=== PATIENT | female | born 1955 | race Caucasian/White ===

== ENCOUNTER 2016-08-24 14:11 | Emergency (ER) | payer BC ==
[2016-08-24 15:31] LABS: BASOPHILS 0.3 % (0-2); EOSINOPHILS 0.9 % (0-7); HEMOGLOBIN 13.8 g/dL (12-16); IMMATURE GRANULOCYTES 0.3 % (0-5); LYMPHOCYTES 19.8 % (15-50); MCH 32.1 pg (26.0-34.0); MCHC 33.7 g/dL (31.0-37.0); MCV 95.3 fL (80.0-100.0); MEAN PLATELET VOLUME 9.1 fL (7.4-10.4); NEUTROPHILS 71.7 % (40-80); PLATELET COUNT 379 10x3/uL (130-400); RDW 14.4 % (11.5-14.5); WBC 10.2 10x3/uL (4.8-10.8)
[2016-08-24 15:43] LABS: ALBUMIN 3.9 g/dL (3.4-5.0); ALKALINE PHOSPHATASE 95 U/L (46-116); ALT (SGPT) 18 U/L (10-68); BILIRUBIN - TOTAL 0.43 mg/dL (0.2-1.3); CALC OSMOLALITY 267 mosm/kg (275-300); CALCIUM 9.3 mg/dL (8.5-10.1); CARBON DIOXIDE 27.9 mmol/L (21.0-32.0); CHLORIDE - SERUM 98 mmol/L (98-107); CREATININE - SERUM 0.7 mg/dL (0.6-1.3); GLUCOSE 96 mg/dL (74-106); POTASSIUM - SERUM 4.6 mmol/L (3.5-5.1); PROTEIN - SERUM 7.8 g/dL (6.4-8.2); SODIUM 134 mmol/L (136-145); UREA NITROGEN 13 mg/dL (7-18); eGFR NON AFRICAN AMERICAN 90 mL/min (90-120)
[2016-08-24 15:52] LABS: T4 THYROXINE 8.5 ug/dL (4.7-13.3); THYROID STIMULATING HORMONE 1.85 uIU/mL (0.36-3.74)
[2016-08-24 15:55] LABS: C-REACTIVE PROTEIN 0.2 mg/dL (0.0-0.9)
== END 2016-08-24 16:21 | disposition home or self-care (01) ==
LOC: D.ER 14:11
PROVIDERS: Emergency Medicine
DX: H53.2 Diplopia (principal)

== ENCOUNTER → 2016-11-01 11:27 | Outpatient (CLI) | payer BC | END | disposition home or self-care (01) | LOC: D.CT 11:27 | DX: R05 Cough (principal); R63.4 Abnormal weight loss; F17.299 Nicotine dependence, other tobacco product, with unspecified nicotine-induced disorders ==

== ENCOUNTER → 2017-02-08 07:21 | Outpatient (CLI) | payer BC ==
[~2017-02-08 07:21] MED LIST: BETAPACE 80 MG80 MG PO; TAPAZOLE 5 MG TA5 MG PO
[2017-02-08 08:23] LABS: ALBUMIN 3.8 g/dL (3.4-5.0); BILIRUBIN - DIRECT 0.09 mg/dL (0.00-0.30); BILIRUBIN - INDIRECT 0.31 mg/dL (0.00-1.00); BILIRUBIN - TOTAL 0.4 mg/dL (0.2-1.3); PROTEIN - SERUM 8.1 g/dL (6.4-8.2)
[2017-02-10 10:53] VITALS: BMI 14.9
== END | disposition home or self-care (01) ==
LOC: D.MRI 02-01 08:00
PROVIDERS: Internal Medicine Gastroenterology
DX: R11.0 Nausea (principal); R63.4 Abnormal weight loss; R10.12 Left upper quadrant pain; R19.7 Diarrhea, unspecified; K76.9 Liver disease, unspecified

== ENCOUNTER 2017-02-09 08:42 | Inpatient (IN) | payer BC ==
[~2017-02-09] VITALS: Ht 165.1 cm; Wt 40.7 kg
[2017-02-09 09:28] LABS: BASOPHILS 0.1 % (0-2); EOSINOPHILS 0.7 % (0-7); HEMATOCRIT 38.6 % (36.0-48.0); HEMOGLOBIN 13.1 g/dL (12-16); IMMATURE GRANULOCYTES 0.2 % (0-5); MCH 30.2 pg (26.0-34.0); MCHC 33.9 g/dL (31.0-37.0); MCV 88.9 fL (80.0-100.0); MEAN PLATELET VOLUME 8.9 fL (7.4-10.4); MONOCYTES 6.9 % (2-11); NEUTROPHILS 74.1 % (40-80); PLATELET COUNT 345 10x3/uL (130-400); RBC 4.34 10x6/uL (4.00-5.40); RDW 13.6 % (11.5-14.5); WBC 9.8 10x3/uL (4.8-10.8)
[2017-02-09 09:41] LABS: ALKALINE PHOSPHATASE 88 U/L (46-116); ALT (SGPT) 26 U/L (10-68); BILIRUBIN - TOTAL 0.32 mg/dL (0.2-1.3); CALC OSMOLALITY 284 mosm/kg (275-300); CALCIUM 8.6 mg/dL (8.5-10.1); CARBON DIOXIDE 30.4 mmol/L (21.0-32.0); CHLORIDE - SERUM 106 mmol/L (98-107); CREATININE - SERUM 0.5 mg/dL (0.6-1.3); GLUCOSE 99 mg/dL (74-106); PROTEIN - SERUM 6.7 g/dL (6.4-8.2); SODIUM 143 mmol/L (136-145); UREA NITROGEN 13 mg/dL (7-18); eGFR NON AFRICAN AMERICAN > 90 mL/min (90-120)
[2017-02-09 09:53] LABS: MAGNESIUM - SERUM 1.8 mg/dL (1.8-2.4)
[2017-02-09 10:08] LABS: APTT 29.8 SECONDS (22.8-39.4)
[2017-02-09 10:09] LABS: D-DIMER-QUANTITATIVE 0.4 ug/mLFEU (0.20-0.54); INR 1.08 (0.85-1.17); PROTIME 13.6 SECONDS (11.6-15.0)
[2017-02-09 10:15] LABS: CKMB 0.9 U/L (0.0-3.6); CREATINE KINASE 34 UL (21-215); TROPONIN-I < 0.017 ng/mL (0.000-0.060)
[2017-02-09 11:05] LABS: T4 THYROXIN - FREE 1.91 ng/dL (0.76-1.46); T4 THYROXINE 13.9 ug/dL (4.7-13.3)
--- NOTE | 2017-02-09 11:58 | NUR ---
RATIONALE FOR SCD'S EXPLAINED. REFUSED SCD'S AT THIS TIME. IS AMBULATORY
--- NOTE | 2017-02-09 12:03 | NUR ---
CALLED PATIENT SPOUSE PER PATIENT REQUEST TO LET HIM KNOW SHE HAD BEEN ADMITTED AND ROOM #
[2017-02-09 12:22] VITALS: BMI 14.0
[2017-02-09 12:58] VITALS: BP 96/62
[2017-02-09 16:30] VITALS: BP 88/46
--- NOTE | 2017-02-09 20:13 | NUR ---
RESUMED CARE OF PT, LYING IN BED RESPIRATIONS EVEN AND UNLABORED ON 2LPM VIA NC. 79 SR ON TELEMETYR. RIGHT AC INFUSING CARDIZEM @ 5. PLAN OF CARE DISCUSSED. CALL LIGHT IN REACH. SEE NURSE ASSESSMENT. WILL CONTINUE TO MONITOR.
[2017-02-09 22:08] VITALS: BP 98/51
--- NOTE | 2017-02-10 01:52 | NUR ---
LYING IN BED WITH EYES CLOSED, CALL LIGHT IN REACH. WILL CONTINUE WITH PLAN OF CARE.
[2017-02-10 05:06] VITALS: BP 114/61
[2017-02-10 05:14] LABS: BASOPHILS 0.3 % (0-2); EOSINOPHILS 2.9 % (0-7); HEMOGLOBIN 11.5 g/dL (12-16); IMMATURE GRANULOCYTES 0.2 % (0-5); LYMPHOCYTES 42.4 % (15-50); MCH 29.7 pg (26.0-34.0); MCHC 32.9 g/dL (31.0-37.0); MCV 90.4 fL (80.0-100.0); MEAN PLATELET VOLUME 9.2 fL (7.4-10.4); MONOCYTES 10.8 % (2-11); NEUTROPHILS 43.4 % (40-80); PLATELET COUNT 332 10x3/uL (130-400); RBC 3.87 10x6/uL (4.00-5.40); RDW 13.9 % (11.5-14.5)
[2017-02-10 05:16] LABS: WBC 6.6 10x3/uL (4.8-10.8)
[2017-02-10 05:26] LABS: CALC OSMOLALITY 284 mosm/kg (275-300); CALCIUM 8.8 mg/dL (8.5-10.1); CARBON DIOXIDE 28.4 mmol/L (21.0-32.0); CHLORIDE - SERUM 106 mmol/L (98-107); CREATININE - SERUM 0.6 mg/dL (0.6-1.3); GLUCOSE 101 mg/dL (74-106); MAGNESIUM - SERUM 1.9 mg/dL (1.8-2.4); POTASSIUM - SERUM 3.9 mmol/L (3.5-5.1); SODIUM 143 mmol/L (136-145); UREA NITROGEN 13 mg/dL (7-18); eGFR NON AFRICAN AMERICAN > 90 mL/min (90-120)
--- NOTE | 2017-02-10 06:53 | NUR ---
NO CHANGES FROM PREVIOUS ASSESSMENT, CALL LIGHT IN REACH.
--- NOTE | 2017-02-10 07:30 | NUR ---
RECEIVED PT IN BED EYES CLOSED RESP UNLABORED NAD NOTED
[2017-02-10 10:10] VITALS: BP 102/67
[2017-02-10 10:53] VITALS: Ht 165.1 cm; Wt 40.7 kg
[2017-02-10 13:14] VITALS: BP 110/59
[2017-02-10] MEDS ORDERED: TAPAZOLE 5 MG TA5 MG PO (13:49)
[2017-02-10] MEDS ORDERED: BETAPACE 80 MG80 MG PO (13:49)
--- NOTE | 2017-02-10 15:50 | NUR ---
Patient Name: BEAN HEMPHILL Admission Status: ER Accout number: [id number] Admission Date: 02-09-2017 : 1955 Admission Diagnosis: Attending: ALYSE EVANS Current LOS: 1 Anticipated DC Date: 02-10-2017 Planned Disposition: Home Primary Insurance: [employer] Discharge Planning Comments: * Is the patient Alert and Oriented? Yes 0 * How many steps to enter\exit or inside your home? NONE 0 * PCP DR. ANDRES 0 * Pharmacy [facility] ON [address] 0 * Preadmission Environment Home with Family 0 * ADLs Independent 0 * Equipment None 0 * Other Equipment NO MEDICAL EQUIPMENT PROVIDER PREFERNECE 0 * List name and contact numbers for known caregivers / representatives who currently or will assist patient after discharge: QASIM HEMPHILL, SPOUSE, 0 * Community resources currently utilized None 0 * Please name any agencies selected above. NONE 0 * Additional services required to return to the preadmission environment? No 0 * Can the patient safely return to the preadmission environment? Yes 0 * Has this patient been hospitalized within the prior 30 days at any hospital? No 0 CM MET WITH PT AND SPOUSE IN ROOM TO DISCUSS DISCHARGE PLANNING AND NEEDS. PT REPORTS LIVING AT HOME INDEPENDENTLY WITH HER SPOUSE. PT HAS NO MEDICAL EQUIPMENT AND NO OUTSIDE SERVICES ASSISTING IN THE HOME. CM DISCUSSED AVAILABILITY OF HOME HEALTH, REHAB SERVICES AND MEDICAL EQUIPMENT. PT DENIES DISCHARGE NEEDS, REPORTS HER SPOUSE IS HERE TO PICK HER UP FOR DISCHARGE HOME TODAY. MI[employer]OS[employer]FT DEVELOPER NURSE NOTIFIED. Data Warehouse Analyst: Bryson Mcelroy
--- NOTE | 2017-02-10 16:20 | NUR ---
REVIEWED DISCHARGE INSTRUCTIONS WITH PT STATE UNDERSTANDING COPY GIVEN DCD SALINE LOCK TO RAC WITH IV CATHETER INTACT SITE FREE OF REDNESS OR EDEMA PT DISCHARGED HOME LEFT UNIT VIA W/C IN STABLE CONDITION WITH ALL PERSONAL BELONGINGS
--- NOTE | 2017-02-14 12:15 | EC ---
PATIENT:BEAN HEMPHILL DATE OF SERVICE: 02/09/17 SEX: F MEDICAL RECORD: [id number] DATE OF : [birth year] LOCATION:D.M2 D.211 AGE OF PATIENT: 61 ADMISSION DATE: 02/09/17 REFERRING PHYSICIAN: INTERPRETING PHYSICIAN: CHANTALE PATEL MD ECHOCARDIOGRAM REPORT ECHO CHARGES 4 ECHO COMPLETE CLINICAL DIAGNOSIS: AFIB ECHOCARDIOGRAPHIC MEASUREMENTS (adult normal given) AC root (d.<3.7cm) 2.4 cm LV Septum d (<1.2 cm> 0.9 cm Valve Excursion 1.0 cm LV Septum (systole) 1.2 cm Left Atria (s.<4.0cm> 2.8 cm LVPW d(<1.2cm) 1.2 cm RV (d.<2.3cm) 2.9 cm LVPW (sytole) 1.4 cm LV diastole(<5.6CM) 4.0 cm MV E-F(>70mm/sec) cm LV systole 2.7 cm LVOT Diameter 1.5 cm MV exc.(>10mm) 1.8 cm Est.ejection fraction (50-75%) % Pericardial Effusion N DOPPLER: LVIT cm/sec A 110 cm/sec E 131 cm/sec LA cm/sec RVSP 33 mmHg LVOT 92 cm/sec AOP1/2T m/s Asc. Ao 109 cm/sec RVOT cm/sec RA cm/sec PA 93 cm/sec AV Gradient Peak 4.74 mmHg AV Mean 2.25 mmHg AV Area 1.5 cm MV Gradient Peak 7.08 mmHg MV Mean 2.52 mmHg MV Area cm COMMENTS: Hot Plate Plywood Press Laborer: Fatuma BERNAL Settlement Clerk: Valentin Patel TAPE# PACS DATE OF SERVICE: 02/10/2017 Echocardiogram FINDINGS: 1. Left ventricular chamber size is within normal limits. Left ventricular systolic function is normal. Overall ejection fraction estimated at 60%. 2. Left atrium, right atrium, and right ventricular chamber sizes are within normal limits. 3. Valvular structures have normal structure and motion. ECHOCARDIOGRAM REPORT [id number] BEAN HEMPHILL 4. Doppler interrogation only reveals mild mitral regurgitation, mild tricuspid regurgitation, no other valvular insufficiency or stenosis. Pulmonary systolic pressure is normal estimated 33 mmHg. 5. No evidence of pericardial effusion or left ventricular thrombus. TRANSINT:[id number] Voice Confirmation ID: [id number] DOCUMENT ID: [id number] CHANTALE PATEL MD at 1215 CC: [id number] DICTATION DATE: 02/10/17 1422 [employer] EQUIPMENT: 02/10/17 1506 DIS IN 02/10/17 [place] [id number] [place] [id number]
--- NOTE | 2017-02-14 12:15 | CN ---
PATIENT NAME:BEAN CARTER MEDICAL RECORD: [id number] : [birth year] LOCATION:[facility] D.2114 ADMIT DATE: 02/09/17 ACCOUNT: [id number] CONSULTING PHYSICIAN: CHANTALE ZIMMERMAN MD REFERRING PHYSICIAN: ALYSE EVANS MD DATE OF CONSULTATION: 02/09/2017 DIAGNOSES: 1. Atrial fibrillation with rapid response. 2. Tachycardia. 3. Palpitations. HISTORY OF PRESENT ILLNESS: Mrs. Carter has had minimal symptomatology from the standpoint of palpitation. She was in Dr. Krueger's office Monday and was told that her heart rate and blood pressure were normal. She went for endoscopy today and was told that she had atrial fibrillation with rapid ventricular response. She has heart rates in the 130s. She is in atrial fibrillation. PHYSICAL EXAMINATION: GENERAL APPEARANCE: Well-nourished, well-developed, appears stated age. Level of distress, comfortable. PSYCHIATRIC: Mental status, alert, normal affect. Orientation, oriented to time, place and person. EYES: Lids and conjunctiva, noninjected. No discharge, no pallor. ENT: Lips, teeth, gums, normal dentition. Oropharynx, no cyanosis, no pallor. NECK: Carotid arteries, bilateral normal upstroke, no bruits, no thrills. JUGULAR VEINS: No jugular venous pressure or distention. CERVICAL LYMPH NODES: Nontender, nonenlarged. THYROID: Not enlarged. Nontender. No nodules. LUNGS: Respiratory effort, unlabored. CHEST: Normal curvature. No thoracic deformity. No chest wall tenderness. Percussion, resonant. Auscultation, clear. No wheezes, no rales, no rhonchi. CARDIOVASCULAR: Precordial exam, nondisplaced. No heaves or pericardial thrills. Rate and rhythm, regular. Heart sounds, normal S1, normal S2. No S3, no gallop, no rub. Systolic murmur, not heard. Diastolic murmur, not heard. EXTREMITIES: No cyanosis, no edema. Peripheral pulses, full and equal in all extremities, except as noted. No bruits appreciated. ABDOMEN: Soft, nondistended. Normal aorta. No bruit. Nontender. No masses. Liver, nontender, no hepatomegaly. Spleen, nontender, no splenomegaly. MUSCULOSKELETAL: No joint tenderness. No joint swelling. No erythema. NEUROLOGICAL: Normal gait, normal strength, normal tone. SKIN: Warm and dry. REVIEW OF SYSTEMS: The patient reports easy bruising but reports no swollen glands. The patient reports no fever, no night sweats, no significant weight gain, no significant weight loss. No significant exercise tolerance. The patient reports no dry eyes, no irritation, no vision change. Patient reports no difficulty hearing and no ear pain. Patient reports no frequent nose bleeds or nose and sinus problems. Patient reports on arm pain on exertion. No shortness of breath while lying down. No history of heart murmur. Patient reports no cough, no wheezing or coughing up blood. Patient reports no abdominal pain, no vomiting. Normal appetite. No diarrhea and not vomiting blood. No nausea and no constipation. Patient reports no incontinence. No difficulty urinating. No hematuria. No increased frequency. Patient reports no muscle aches. No weakness, no arthralgias, no back pain. No swelling of the CONSULT REPORT [id number] BEAN CARTER extremities. Patient reports no abnormal mole, no jaundice, no rashes. Reports no loss of consciousness. No weakness and no numbness. No seizures, dizziness, or headaches. The patient reports no depression, no sleep disturbance, feeling safe in a relationship and no alcohol abuse. Patient reports on fatigue. Reports no runny nose or sinus pressure. No itching, no hives, and no frequent sneezing. OVERALL IMPRESSION: At this time, we will start her on sotalol. Hopefully, this will convert her to sinus rhythm. We will get an echocardiogram as well. No other cardiac workup or treatment is necessary. If she does not convert by tomorrow morning, we will plan for DC cardioversion. TRANSINT:[id number] Voice Confirmation ID: [id number] DOCUMENT ID: [id number] CHANTALE ZIMMERMAN MD at 1215 CC: [id number] DICTATION DATE: 02/09/17 1319 AUTOMOTIVE ELECTRICIAN: 02/09/17 1333 DIS IN 02/10/17 [place] [id number] [place] [id number]
== END 2017-02-10 16:20 | disposition home or self-care (01) | DRG 310 ==
LOC: D.ER 08:42 → D.M2 10:48
PROVIDERS: Family Medicine; ADMIT Family Medicine
DX: I48.91 Unspecified atrial fibrillation (principal); E05.90 Thyrotoxicosis, unspecified without thyrotoxic crisis or storm; Z72.0 Tobacco use

== ENCOUNTER 2018-02-12 08:00 | Outpatient (CLI) | payer BC ==
[2017-02-10 10:53] VITALS: BMI 14.9
== END 2018-02-12 09:00 | disposition home or self-care (01) ==
LOC: D.MAMMO 08:00
DX: Z12.31 Encounter for screening mammogram for malignant neoplasm of breast (principal)